=== PATIENT | female | born 1940 | race Caucasian/White ===

== ENCOUNTER 2019-06-28 02:52 | Inpatient (IN) | payer MEDICARE ==
[~2019-06-28] VITALS: Ht 165.1 cm; Wt 65.2 kg
[~2019-06-28 02:52] MED LIST: FLUTICASONE50 MCG; LEVOTHYROXIN75 MC1 PO; LEVOTHYROXIN88 MC1 PO; PAROXETINE10 MG PO; PRAVACHOL20 MG PO; SIMVASTATIN40 MG PO
--- NOTE | 2019-06-28 03:15 | NUR ---
BY WC TO ROOM
[2019-06-28 04:27] LABS: BUN 36 mg/dL (8-23); BUN/CREATININE RATIO 47 (12-20 (CALC)); CHLORIDE 97 mmol/l (95-108); CREATININE 0.8 mg/dL (0.5-1.0); GFR > 60 ML/MIN (>=60 (CALC)); GFR FOR AFR.AMER. > 60 ML/MIN (>=60 (CALC)); POTASSIUM 4.1 mmol/l (3.5-5.1); TOTAL PROTEIN 6.2 g/dL (6.3-8.2)
[2019-06-28 04:37] LABS: HEMATOCRIT 34.4 % (37.0-47.0); HEMOGLOBIN 12.4 g/dl (12.0-16.0); IMMATURE GRANULOCYTES 3.1 % (0.0-5.0); MEAN CELL VOLUME 83.7 fL CALC (80.0-100.0); MEAN CORPUSCULAR HGB 30.2 pG CALC (26.0-32.0); NEUT# 15.65 thou/uL (2.00-7.15); RED BLOOD COUNT 4.11 mill/uL (4.20-5.60); RED CELL DISTRI WIDTH 13.9 % (11.5-15.5)
[2019-06-28 04:48] LABS: ALBUMIN 2.9 g/dL (3.2-5.0); ALKALINE PHOSPHATASE 163 u/l (38-126); ANION GAP 16 (6-22 (CALC)); BILIRUBIN, TOTAL 1.9 mg/dL (0.0-1.4); CARBON DIOXIDE 21 mmol/l (22-30); SGOT/AST 65 u/l (9-36); SODIUM 130 mmol/l (137-146)
--- NOTE | 2019-06-28 06:47 | NUR ---
REPORT CALLED TO ANGEL LANGSTON IN ICU
--- NOTE | 2019-06-28 07:34 | NUR ---
PT TAKEN TO FLOOR PER CUT OFF [facility]YER AT 730 WITH CARDIAC MONITER. ALERT/ORIENTED. ACCOMPANIED WITH . VSS.
[2019-06-28 07:49] VITALS: BP 122/65
--- NOTE | 2019-06-28 08:00 | NUR ---
PPT ARRIVES FROM ER ACCOMPANIED BY , ALERT AND ORIENTED X 2. LUNGS WITH RIGHT SIDED COARSENESS, SATS SEEN UPPER 80s TO LOW 90s, PLACED ON 2 LPM NC, THEN UPPED TO 4 LPM HUM. PT FEBRILE AT 102.9 UPON ARRIVAL, PROVIDED TYLENOL FOR SAME. PT DOES HAVE DEMENTIA, EARLY STAGE, INTERACTS WELL WITH PEOPLE, BUT APPEARS CONFUSED AT TIMES. ADMISSION COMPLETED.
[2019-06-28 10:00] VITALS: BP 97/53
[2019-06-28 12:00] VITALS: BP 108/67
--- NOTE | 2019-06-28 12:00 | NUR ---
PT NOT HUNGRY, NIBBLING AT HER MEAL. FAMILY GONE FOR NOW, WILL RETURN. PT DENIES SHORTNESS OF BREATH.
[2019-06-28 13:56] LABS: URINE BILIRUBIN - DIPSTICK NEGATIVE (NEGATIVE); URINE BLOOD DIPSTICK NEGATIVE (NEGATIVE); URINE COLOR YELLOW; URINE GLUCOSE - DIPSTICK NEGATIVE (NEGATIVE); URINE KETONE NEGATIVE (NEGATIVE); URINE LEUK ESTERASE NEGATIVE (NEGATIVE); URINE NITRITE - DIPSTICK NEGATIVE (Negative); URINE PROTEIN - DIPSTICK NEGATIVE (NEG-TRACE); URINE SPECIFIC GRAVITY <=1.005
[2019-06-28 16:00] VITALS: BP 112/75
--- NOTE | 2019-06-28 17:00 | NUR ---
PT CALLS APPROPRIATELY WHEN SHE NEEDS TO USE BSC, STANDBY ASSIST IS ALL THAT IS NEEDED. NO COMPLAINTS OF SHORTNESS OF BREATH OR OTHERWISE.
[2019-06-28 18:00] VITALS: BP 96/59
--- NOTE | 2019-06-28 19:55 | NUR ---
RESTING IN BED. PATIENT ORIENTED X3. SPEECH CLEAR WITH APPROPRIATE RESPONSES TO QUESTIONS. PATIENT STATES SHE HAS DEMENTIA AND CONVERSATION CAN BE REPETITIVE. RESP NON-LABORED AT REST. O2 ON AT 2 L NC. BREATH SOUNDS COARSE THROUGHOUT LUNG URBINA. NON-PRODUCTIVE COUGH PRESENT. IV IN RW WITH NS INFUSING AT 125 ML/HR, SITE BENIGN. GENETIC PHYSICIAN SHOWS SR. EXPLAINED PLAN OF CARE. REINFORCE ANY TEACHING NEEDED.
[2019-06-28 22:00] VITALS: BP 101/56
--- NOTE | 2019-06-28 22:00 | NUR ---
PATIENT SAT UP IN CHAIR FOR PAST HOUR, BACK TO BED NOW. VSS. RESP SLT DYSPNEIC WITH EXERTION.
--- NOTE | 2019-06-29 | NUR ---
AWAKE, RESTLESS AT TIMES. DRY, NON-PRODUCTIVE COUGH PRESENT. SR ON MONITOR.
[2019-06-29 00:13] VITALS: BP 118/66
--- NOTE | 2019-06-29 02:05 | NUR ---
MINIMAL ASSIST UP TO BSC. NO COMPLAINTS VOICED. COOPERATVIE AND PLEASANT. FORGETFUL.
[2019-06-29 04:10] VITALS: BP 120/87
--- NOTE | 2019-06-29 04:10 | NUR ---
PATIENT HAS BEEN AWAKE FO RMOST OF THE NIGHT, SHE STATES SHE HAS BEEN RESTING.
[2019-06-29 05:35] LABS: HEMATOCRIT 32.2 % (37.0-47.0); HEMOGLOBIN 10.9 g/dl (12.0-16.0); IMMATURE GRANULOCYTES 4.2 % (0.0-5.0); MEAN CELL VOLUME 87.3 fL CALC (80.0-100.0); MEAN CORPUSCULAR HGB 29.5 pG CALC (26.0-32.0); MEAN CORPUSCULAR HGB CONC 33.9 g/L CALC (32.0-36.0); RED CELL DISTRI WIDTH 14.2 % (11.5-15.5)
[2019-06-29 05:49] LABS: PLATELET COUNT 308 thou/uL (130-400); RED BLOOD COUNT 3.69 mill/uL (4.20-5.60)
[2019-06-29 05:50] LABS: MANUAL DIFFERENTIAL YES
[2019-06-29 06:00] VITALS: BP 112/59
[2019-06-29 06:11] LABS: BAND 5 % (0-8)
[2019-06-29 06:16] LABS: ALBUMIN 2.5 g/dL (3.2-5.0); ALKALINE PHOSPHATASE 165 u/l (38-126); ANION GAP 11 (6-22 (CALC)); BILIRUBIN, TOTAL 1.4 mg/dL (0.0-1.4); BUN 16 mg/dL (8-23); BUN/CREATININE RATIO 25 (12-20 (CALC)); CARBON DIOXIDE 22 mmol/l (22-30); CHLORIDE 105 mmol/l (95-108); CREATININE 0.6 mg/dL (0.5-1.0); GFR > 60 ML/MIN (>=60 (CALC)); GFR FOR AFR.AMER. > 60 ML/MIN (>=60 (CALC)); POTASSIUM 3.4 mmol/l (3.5-5.1); SGOT/AST 37 u/l (9-36); SODIUM 134 mmol/l (137-146); TOTAL PROTEIN 5.3 g/dL (6.3-8.2)
--- NOTE | 2019-06-29 06:35 | NUR ---
DR LUCERO NOTIFIED OF INCREASED WBC'S AND BANDS. NO NEW ORDERS AT THIS TIME.
--- NOTE | 2019-06-29 08:00 | NUR ---
PT IS AWAKE, ALERT, ORIENTED X 1-2. SHE HAS DEMENTIA, IS ABLE TO SAY THAT SHE HAS DEMENTIA. PT WITH CRACKLES TO LUNG URBINA, 4 LPM HUM NC. PT PROVIDED INCENTIVE SPIROMETER, IS USING IT FREQUENTLY. PT TO BSC NEEDED WITH STANDBY ASSIST. PRODUCTIVE COUGH HEARD OCCASIONALLY.
--- NOTE | 2019-06-29 12:08 | NUR ---
PT USING HER INCENTIVE SPIROMETER OFTEN. PT WITH SATS IN THE MID 90s, DENIES SHORTNESS OF BREATH.
[2019-06-29 12:13] VITALS: BP 140/59
[2019-06-29 16:30] VITALS: BP 124/65
--- NOTE | 2019-06-29 17:38 | NUR ---
PT HAS ENJOYED VISITORS THROUGHOUT THE DAY. NO RESPIRATORY DISTRESS, NO COMPLAINTS OF CHEST PAIN. PT CONTINUES WITH INCENTIVE SPIROMETER OFTEN.
[2019-06-29 20:00] VITALS: BP 136/62
--- NOTE | 2019-06-29 20:10 | NUR ---
RESTING IN BED ON ROUNDS. ALERT AND ORIENTED. RESPONSES TO QUESTIONS ARE APPROPRIATE. PATIENT VERY FORGETFUL AND REPETITIVE IN HER CONVERSATIONS. RESP NON-LABORED AT REST, FRANKS. PATIENT REMOVED O2, SAT DOWN 88-90% REAPPLIED O2 AT 4 L NC AND SAT UP TO 94% ENCOURAGED TO LEAVE O2 IN PLACE. BREATH SOUNDS CLEAR IN UPPER LOBES WITH BIBASILAR CRACKLES. NO PERIPHERAL EDEMA, PERIPHERAL PULSES INTACT. SALINE LOCK IN PLACE IN LW, SITE HEALTHY. DISCUSSED PLAN OF CARE WILL REINFORCE TEACHING PRN. CALL HWANG IN REACH.
--- NOTE | 2019-06-29 22:15 | NUR ---
PATIENT RESTING QUIETLY IN BED. NO COMPLAINTS VOICED. O2 SAT 93% ON 4 L NC.
[2019-06-30] VITALS (7 sets, daily range): BP systolic 128–150; BP diastolic 64–78
--- NOTE | 2019-06-30 00:10 | NUR ---
PATIENT RESTLESS, STATES "SOMETHING HAS ME KEYED UP". EXPLAINED TO PATIENT THIS MAY BE A SIDE EFFECT TO THE SOLUMEDROL. PATIENT AMBULATED TO BR WITH ASSIST, GAIT AND STANCE STABLE. VOIDS QS. ASSISTED TO RECLINER.
--- NOTE | 2019-06-30 02:00 | NUR ---
PATIENT IS MORE CONFUSED TONIGHT. FREQ ATTEMPTS TO REORIENT. UP TO USE [facility] FREQ.
--- NOTE | 2019-06-30 04:15 | NUR ---
PATIENT HAS TAKEN A FEW BRIEF NAPS THIS EVENING. CONFUSED, PATIENT THINKS HER A PATIENT IN ICU. SUPPORT AND REASSURANCE PROVIDED FREQUENTLY.
--- NOTE | 2019-06-30 05:00 | NUR ---
ASSISTED PATIENT BACK TO BED. FREQ ATTEMPTS TO REORIENT.
[2019-06-30 05:20] LABS: HEMATOCRIT 33.8 % (37.0-47.0); HEMOGLOBIN 11.5 g/dl (12.0-16.0); MEAN CELL VOLUME 86.4 fL CALC (80.0-100.0); MEAN CORPUSCULAR HGB 29.4 pG CALC (26.0-32.0); RED BLOOD COUNT 3.91 mill/uL (4.20-5.60); RED CELL DISTRI WIDTH 14.6 % (11.5-15.5)
[2019-06-30 05:39] LABS: ANION GAP 11 (6-22 (CALC)); BUN 16 mg/dL (8-23); BUN/CREATININE RATIO 28 (12-20 (CALC)); CARBON DIOXIDE 23 mmol/l (22-30); CHLORIDE 105 mmol/l (95-108); CREATININE 0.6 mg/dL (0.5-1.0); GFR > 60 ML/MIN (>=60 (CALC)); GFR FOR AFR.AMER. > 60 ML/MIN (>=60 (CALC)); POTASSIUM 3.3 mmol/l (3.5-5.1); SODIUM 136 mmol/l (137-146)
--- NOTE | 2019-06-30 07:00 | NUR ---
PT SITTING UP IN CHAIR. PATIENT ANSWERS ORIENTATION QUESTIONS. PT CONFUSED AT TIMES. EDUCATED PATIENT ON FALL RISK AND TO CALL BEFORE GETTING UP. WILL CONTINUE TO MONITOR.
--- NOTE | 2019-06-30 09:05 | NUR ---
SPOKE WITH DAUGHTER CHRIS. UPDATED HER ON PT STATUS.
--- NOTE | 2019-06-30 12:20 | NUR ---
PT UP IN CHAIR. NO DISTRESS NOTED. PT VOIDED VIA BEDSIDE COMMODE. FAMILY AT BEDSIDE. DENIES PAIN. WILL CONTINUE TO MONITOR.
--- NOTE | 2019-06-30 15:49 | NUR ---
PT TO CT SCAN VIA WHEELCHAIR WITH TRANSPORT. PT ON OXYGEN. NO DISTRESS NOTED.
--- NOTE | 2019-06-30 16:15 | NUR ---
PT BACK TO ICU8 FROM CT SCAN. PT IN STABLE CONDITION. NO DISTRESS NOTED
--- NOTE | 2019-06-30 16:45 | NUR ---
DR HELM UPDATED ON PT STATUS. CT COMPLETE
--- NOTE | 2019-06-30 16:55 | NUR ---
PT RESTING IN BED. NO DISTRESS NOTED. DENIES PAIN. FAMILY AT BEDSIDE. WILL CONTINUE TO MONITOR
--- NOTE | 2019-06-30 18:59 | NUR ---
REPORT GIVEN TO NIGHT NURSE. PT RESTING IN BED WITH EYES CLOSED. NO DISTRESS NOTED. NO BM. PT VOIDED VIA BEDSIDE COMMODE. PLEASE SEE FLOW SHEET FOR FURTHER DETAILS.
--- NOTE | 2019-06-30 19:20 | NUR ---
awake. confused. oriented to name only. o2 cont per nc. desats quickly when o2 is removed by pt. quality assurance monitor body shows sinus rhythm pacs pvcs. #22 lt wrist saline lock. po fluids taken well. voids per bsc. fall precautions cont. bed alarm activated.
--- NOTE | 2019-06-30 20:40 | NUR ---
restoril 15mg po given for sleep.
--- NOTE | 2019-06-30 23:00 | NUR ---
awake. tv turned off. instructed pt it was time to sleepy
--- NOTE | 2019-06-30 23:30 | NUR ---
eyes closed. no distress.
--- NOTE | 2019-07-01 00:01 | NUR ---
awake overnight monitor shows sinus rhythm pacs pvcs hr 82.
--- NOTE | 2019-07-01 01:15 | NUR ---
up to bsc then back to bed. instructed pt it was time to sleep.
--- NOTE | 2019-07-01 01:30 | NUR ---
eyes closed. no distress.
--- NOTE | 2019-07-01 03:30 | NUR ---
up to bsc then back to bed. instructed pt it was time to sleep.
--- NOTE | 2019-07-01 03:45 | NUR ---
eyes closed. no distress.
--- NOTE | 2019-07-01 04:00 | NUR ---
locket maker shows sinus rhythm pacs pvcs hr 70.
--- NOTE | 2019-07-01 05:00 | NUR ---
lab here. blood drawn.
[2019-07-01 05:21] LABS: HEMATOCRIT 34.3 % (37.0-47.0); HEMOGLOBIN 11.7 g/dl (12.0-16.0); MEAN CELL VOLUME 88.2 fL CALC (80.0-100.0); MEAN CORPUSCULAR HGB 30.1 pG CALC (26.0-32.0); MEAN CORPUSCULAR HGB CONC 34.1 g/L CALC (32.0-36.0); NEUT# 21.93 thou/uL (2.00-7.15); RED BLOOD COUNT 3.89 mill/uL (4.20-5.60); RED CELL DISTRI WIDTH 14.8 % (11.5-15.5)
[2019-07-01 05:40] LABS: IMMATURE GRANULOCYTES 12.4 % (0.0-5.0)
[2019-07-01 05:48] LABS: ALBUMIN 2.8 g/dL (3.2-5.0); ALKALINE PHOSPHATASE 142 u/l (38-126); BUN 15 mg/dL (8-23); BUN/CREATININE RATIO 24 (12-20 (CALC)); CARBON DIOXIDE 22 mmol/l (22-30); CHLORIDE 107 mmol/l (95-108); CREATININE 0.6 mg/dL (0.5-1.0); GFR > 60 ML/MIN (>=60 (CALC)); GFR FOR AFR.AMER. > 60 ML/MIN (>=60 (CALC)); SODIUM 137 mmol/l (137-146)
[2019-07-01 05:56] LABS: ANION GAP 13 (6-22 (CALC)); BILIRUBIN, TOTAL 0.8 mg/dL (0.0-1.4); POTASSIUM 4.7 mmol/l (3.5-5.1); SGOT/AST 69 u/l (9-36)
--- NOTE | 2019-07-01 07:50 | NUR ---
PT RESTING IN BED WITH EYES CLOSED. NO DISTRESS NOTED. WILL CONTINUE TO MONITOR.
--- NOTE | 2019-07-01 10:05 | NUR ---
DR. HELM AT BEDSIDE TO ASSESS PT
[2019-07-01 12:00] VITALS: BP 134/83
--- NOTE | 2019-07-01 12:26 | NUR ---
PT UP IN CHAIR FOR LUNCH. NO DISTRESS NOTED. 1 BM. PT TO THE BEDSIDE COMMODE. BED BATH COMPLETE. DENIES ANY PAIN AT THIS TIME. WILL CONTINUE TO MONITOR.
--- NOTE | 2019-07-01 15:00 | NUR ---
PT AMBULATED AROUND UNIT WITH THIS RN. STAND BY ASSIST. NO RESP DISTRESS NOTED. NO SOB NOTED. WILL CONTNIUE TO MONITOR
[2019-07-01 16:00] VITALS: BP 140/67
--- NOTE | 2019-07-01 16:23 | NUR ---
PT RESTING IN CHAIR WITH EYES CLOSED. NO DISTRESS NOTED. DENIES PAIN. NO NEEDS AT THIS TIME. WILL CONTINUE TO MONITOR.
--- NOTE | 2019-07-01 19:01 | NUR ---
REPORT GIVEN TO NIGHT NURSE. PT RESTING IN CHAIR. NO DISTRESS NOTED. PT ON NC. URINATED VIA COMMODE. 1 BM. AMUBLATED WITHOUT RESP DISTRESS.
[2019-07-01 19:30] VITALS: BP 124/73
--- NOTE | 2019-07-01 19:30 | NUR ---
sitting in bedside chair. denies distress. mentally less confused tonite. o2 cont per nc. diagnostic cardiac sonographer shows sinus rhythm hr 100. #22 lt wrist saline lock. po fluids taken well. voids per bsc. fall precautions cont. @ bedside.
--- NOTE | 2019-07-01 21:40 | NUR ---
voided per bsc then assisted to bed. argelia well. restoril 15mg po given for sleep.
--- NOTE | 2019-07-02 00:01 | NUR ---
traffic monitor specialist shows sinus rhyyhm pace pacs hr 62.
--- NOTE | 2019-07-02 03:45 | NUR ---
inc large amount of urine. bed bath given then up to chair.
--- NOTE | 2019-07-02 04:58 | NUR ---
asleep in chair. assisted to bed. rt @ bedside for francia tx. lab here. blood drawn.
[2019-07-02 05:27] LABS: HEMATOCRIT 31.5 % (37.0-47.0); HEMOGLOBIN 10.5 g/dl (12.0-16.0); MEAN CELL VOLUME 89.2 fL CALC (80.0-100.0); MEAN CORPUSCULAR HGB 29.7 pG CALC (26.0-32.0); MEAN CORPUSCULAR HGB CONC 33.3 g/L CALC (32.0-36.0); RED BLOOD COUNT 3.53 mill/uL (4.20-5.60)
[2019-07-02 05:56] LABS: ANION GAP 12 (6-22 (CALC)); BUN 16 mg/dL (8-23); BUN/CREATININE RATIO 26 (12-20 (CALC)); CARBON DIOXIDE 23 mmol/l (22-30); CHLORIDE 104 mmol/l (95-108); CREATININE 0.6 mg/dL (0.5-1.0); GFR > 60 ML/MIN (>=60 (CALC)); GFR FOR AFR.AMER. > 60 ML/MIN (>=60 (CALC)); POTASSIUM 4.4 mmol/l (3.5-5.1); SODIUM 135 mmol/l (137-146)
--- NOTE | 2019-07-02 07:59 | NUR ---
PT A&Ox3. C/O PAIN WITH COUGH. STATES COUGH NOW PRODUCTIVE WITH YELLOW MUCOS. BREATHING EVEN/UNLABORED. STRONG PULSES x4.
[2019-07-02 08:00] VITALS: BP 120/70
--- NOTE | 2019-07-02 08:36 | NUR ---
DR HEML @BEDSIDE WITH PT/FAMILY.
--- NOTE | 2019-07-02 08:56 | NUR ---
BED ALARM ALARMING, UPON ENTERING ROOM, DAUGHTER STATES "THEY LET ME GET HER UP FOR THE PAST 3 DAYS". FAMILY ASKED TO NOTIFY STAFF OF URINE OUTPUT. DAUGHTER ALSO ASKED TO GET PT DRESSED IN HER [place], ASKED FAMILY TO LEAVE PT IN HER HOSPITAL GOWN.
[2019-07-02 12:00] VITALS: BP 118/66
--- NOTE | 2019-07-02 12:00 | NUR ---
PT SITTING UP IN CHAIR, EATING LUNCH. GUEST TRAY ORDERED FOR .
--- NOTE | 2019-07-02 15:13 | NUR ---
PT REMAINS UP IN CHAIR. IN CHAIR CONVERSING WITH PT. PT DENIES PAIN, SOB, N/V/D. CALLBELL W/IN REACH. WILL CONTINUE TO MONITOR.
[2019-07-02 16:00] VITALS: BP 136/75
--- NOTE | 2019-07-02 16:04 | NUR ---
PTS FAMILY CONCERNED ABOUT PT SAYING SHES NOT SLEEPING AT NIGHT. MD AWARE, AWAITING NEW ORDER. DAUGHTER @BEDSIDE WANTS TO WALK PT AROUND UNIT; PT WANTS TO USE A WALKER BUT DAUGHTER DOESNT WANT HER TO. DAUGHTER AWARE UNTIL PHYSICAL THERAPY CLEARS HER, SHE WILL NEED SUPPORT WHEN WALKING AROUND UNIT TO PREVENT FALLS/ FOR HER SAFETY.
[2019-07-02 17:00] VITALS: BP 141/82
--- NOTE | 2019-07-02 17:14 | NUR ---
PT/FAMILY WAITING ON NEW ROOM ASSIGNMENT ON MSU.
--- NOTE | 2019-07-02 18:20 | NUR ---
FAMILY GIVEN BLANKETS, DAUGHTER LAYING IN PTS BED, PT SITTING UP IN A CHAIR, IN THE RECLINER GIVEN TURKEY SANDWICH & WATER.
--- NOTE | 2019-07-02 20:00 | NUR ---
REPORT RECEIVED. ROUNDS MADE AND FAMILY AT PT BEDSIDE SUPPORTIVE. PT HAS MILD SIGNS OF TACHYPNEA AND DYSPNEA WHILE UP IN RECLINER TALKING. 02 ON 3L NC. BREATH SOUNDS CLEAR AND DIMINISHED. 02 SATS 96%. PLAN OF CARE REVIEWED. DENIES PAIN HAS NO NEEDS AT THIS TIME.
[2019-07-02 22:00] VITALS: BP 135/77
--- NOTE | 2019-07-03 | NUR ---
ASSIST TO BED FROM RECLINER AFTER VOIDING ON BEDSIDE COMMODE. AGRESSIVE PULMONARY TOILETTING WITH INSTRUCTION AND REVIEW OF INCENTIVE SPIROMETER. USE AT 2000 LEVEL OF 750 MOSTLY AND STRUGGLED TO 1000 MUSA WITH POOR NON PRODUCTIVE COUGH. REVIEW AND REINSTRUCT AT 2200 GAVE MUCH IMPROVED RESULTS OF 1000 CONSISTENTLY TO 10 WITH A FEW INSPIR TO 1500. STRONG LOOSE PRODUCTIVE COUGH WITH YELLOW THICK SECRETIONS. GIVEN ROBITUSSIN AND TYLENOL FOR COUGH AND ABDOMINAL AND CHEST MUSCLE SORENESS WITH GOOD RESULTS. GIVEN RESTORIL AT 2330 AFTER INCENT SPIROM USE BEFORE ASSIST TO BED. NOW RESTING WITH EYES CLOSED AND FACE RELAXED. 02 WEANED FROM 3 DOWN TO 2L NC. RR 16, 02 SAT 98%.
--- NOTE | 2019-07-03 04:00 | NUR ---
AWAKENED COUGHING AROUND 0145, MED WITH PRN DOSE OF ROBITUSSIN AVAILABLE. RETURNED TO REST WITH EYES CLOSED, FACE RELAXED. HR 60S SINUS NO ECTOPY. RR 15-18 NON LABORED. 02 SAT 98-100% ON 2L NC. WILL CONTINUE TO MONITOR.
[2019-07-03 05:20] VITALS: BP 120/65
[2019-07-03 05:48] LABS: HEMATOCRIT 29.8 % (37.0-47.0); HEMOGLOBIN 9.9 g/dl (12.0-16.0); MEAN CELL VOLUME 89.2 fL CALC (80.0-100.0); MEAN CORPUSCULAR HGB 29.6 pG CALC (26.0-32.0); MEAN CORPUSCULAR HGB CONC 33.2 g/L CALC (32.0-36.0); RED BLOOD COUNT 3.34 mill/uL (4.20-5.60); RED CELL DISTRI WIDTH 14.9 % (11.5-15.5)
[2019-07-03 06:15] LABS: ANION GAP 8 (6-22 (CALC)); BUN 14 mg/dL (8-23); BUN/CREATININE RATIO 23 (12-20 (CALC)); CARBON DIOXIDE 25 mmol/l (22-30); CHLORIDE 105 mmol/l (95-108); CREATININE 0.6 mg/dL (0.5-1.0); GFR > 60 ML/MIN (>=60 (CALC)); GFR FOR AFR.AMER. > 60 ML/MIN (>=60 (CALC)); POTASSIUM 4.1 mmol/l (3.5-5.1); SODIUM 134 mmol/l (137-146)
--- NOTE | 2019-07-03 07:00 | NUR ---
RECVD REPORT FROM ANGEL YOUSIF @START OF SHIFT.
[2019-07-03 08:00] VITALS: BP 112/66
--- NOTE | 2019-07-03 09:40 | NUR ---
ARANDA, PHYSICAL THERAPY @BEDSIDE, WALKING PT AROUND UNIT USING WALKER. PT USING UNSTEADY GAIT WITH POOR REACTION TIME.
--- NOTE | 2019-07-03 10:50 | NUR ---
PT WAS SEEN SITTING IN THE RECLINER WITH FAMILY IN THE ROOM. HER DAUGHTER MENTIONS THAT PT WAS WALKING FINE 2 DAYS AGO HOWEVER IS NOW SHOWING SOME DECLINE IN FUNCTION. PT WAS COOPERATIVE AND WAS ABLE TO FOLLOW INSTRUCTIONS DURING THE TX HOWEVER NOTED INCREASE IN REACTION TIME AND INABILITY TO EXECUTE PURPOSEFUL GROSS MOTOR FUNCTION INDEPENDENTLY. THERAPIST HAD TO CONSTANTLY PROVIDE TACTILE AND VERBAL CUES THROUGHOUT THE TX. SIT<>STAND WITH MIN A. SHE AMBULATED IN THE HALLWAY AT A VERY SLOW PACE WITH RW, CGA AND CONSTANT TC AND VCS, THERAPIST NAVIGATING THE WALKER PT WAS UNABLE TO DO SO. VITALS WERE STABLE POST TX. HER AMPAC SCORE TODAY IS 14 POINTS. PT WILL BENEFIT FROM IRF FOR GEN CONDITIONING, STRNEGTHENING AND BALANCE TRAINING.
--- NOTE | 2019-07-03 11:51 | NUR ---
REPORT GIVEN TO ANGEL LANGSTON FOR CONTINUATION OF CARE. PT WILL TRANSFER TO [facility] 283
--- NOTE | 2019-07-03 11:59 | NUR ---
FAMILY AWARE OF TRANSFER.
[2019-07-03 12:00] VITALS: BP 117/65
[2019-07-03 14:30] VITALS: BP 135/73
--- NOTE | 2019-07-03 14:31 | NUR ---
pt transfered to [facility] with all belongings. pt appreciative of staffs help.
--- NOTE | 2019-07-03 15:00 | NUR ---
PT ARRIVES FROM ICU VIA WHEELCHAIR, ALERT AND ORIENTED X 2-3. LUNGS CLEAR, RA. PT DENIES SHORTNESS OF BREATH, STATES THAT SHE FEELS BETTER TODAY. FAMILY AT BEDSIDE.
--- NOTE | 2019-07-03 16:30 | NUR ---
PT WITH VISITORS AT BEDSIDE, INTERACTIVE. NO SHORTNESS OF BREATH SHE RESTS IN THE BED. PT ASSISTED TO BR WITH STANDBY ASSIST.
[2019-07-03 19:32] VITALS: BP 122/61
--- NOTE | 2019-07-03 20:15 | NUR ---
PT SITTING UP IN CHAIR, USING IS. ASSESMENT COMPLETE. PLAN OF CARE REVIEWED. PT VERBALIZES UNDERSTANDING, DENIES QUESTIONS. DENIES NEEDS AT THIS TIME. CALL HWANG WITHIN REACH, AGREES TO CALL PRN.
[2019-07-04 00:14] VITALS: BP 108/63
--- NOTE | 2019-07-04 00:15 | NUR ---
PT APPEARS TO BE SLEEPING COMFORTABLY, NO APPARENT DISTRESS. PT WAKES EASILY. DENIES NEEDS AT THIS TIME. CALL HWANG IN REACH, AGREES TO CALL PRN.
--- NOTE | 2019-07-04 04:00 | NUR ---
PT APPEARS TO BE SLEEPING COMFORTABLY, NO APPARENT DISTRESS. RESP REG AND UNLABORED. CALL HWANG REMAINS WITHIN REACH.
[2019-07-04 05:27] LABS: HEMATOCRIT 31.1 % (37.0-47.0); HEMOGLOBIN 10.3 g/dl (12.0-16.0); MEAN CELL VOLUME 90.7 fL CALC (80.0-100.0); MEAN CORPUSCULAR HGB CONC 33.1 g/L CALC (32.0-36.0); RED BLOOD COUNT 3.43 mill/uL (4.20-5.60)
[2019-07-04 05:41] LABS: ANION GAP 10 (6-22 (CALC)); BUN 15 mg/dL (8-23); BUN/CREATININE RATIO 23 (12-20 (CALC)); CARBON DIOXIDE 28 mmol/l (22-30); CHLORIDE 102 mmol/l (95-108); CREATININE 0.7 mg/dL (0.5-1.0); GFR > 60 ML/MIN (>=60 (CALC)); GFR FOR AFR.AMER. > 60 ML/MIN (>=60 (CALC)); POTASSIUM 4.2 mmol/l (3.5-5.1); SODIUM 135 mmol/l (137-146)
[2019-07-04 08:00] VITALS: BP 103/65
--- NOTE | 2019-07-04 08:00 | NUR ---
PT AWAKE, ALERT, ORIENTED X 3, HAD ADJUSTED WELL TO MED/SURG ROOM. PT TAKEN TO XRAY FOR 2V THIS MORNING. NO DISTRESS, NO SHORTNESS OF BREATH.
[2019-07-04 10:45] VITALS: BP 113/73
--- NOTE | 2019-07-04 11:11 | NUR ---
Physical Therapy Visit Note July 04, 2019, Sunday Patient identitified by name and date of . Paient expressed readiness for physical therapy. PT Management: 1. AROME of both the UE x 10 repetitions, sitting. 2. AROME of both the LE x 10 repetitions, sitting. 3. Sit to stand x 3 to 5 repetitons with + 1 minimal assit. 4. Sitting balance/tolerance x 5 minutes. 5. Standing balance/tolerance x 5 minutes. 6. Bed to chair and in between chair transfers. 7. Gait training with rolling walker x 20 feet x 2 rounds with rest periods in-between rounds. Minimal assist and verbal cues provided for safety. Patient was able to perform all exercises but fatigued quickly. SO2 remained above 90%. Patient was left in the chair with daugther in the room after physical therapy session.
--- NOTE | 2019-07-04 12:00 | NUR ---
PT AND FAMILY UPDATED ON RESULTS FROM CHEST XRAY SHOWING MILD IMPROVEMENT. DR HELM HAS SEEN PT, WILL KEEP OVER THE WEEKEND TO CONTINUE IV ABX. PT IN AGREEMENT.
[2019-07-04 15:30] VITALS: BP 97/59
--- NOTE | 2019-07-04 16:39 | NUR ---
PT OOB IN CHAIR THIS AFTERNOON, CHATS WITH . NO DISTRESS NOTED.
[2019-07-04 18:32] VITALS: BP 117/74
--- NOTE | 2019-07-04 20:40 | NUR ---
PT SITTING UP IN CHAIR WATCHING TV. PHYSICAL ASSESMENT COMPLETE AND DOCUMENTED. VS ASSESSED, VSS. PLAN OF CARE REVIEWED. VERBALIZES UNDERSTANDING, DENIES QUESTIONS AT THIS TIME. DENIES FURTHER NEEDS AT THIS TIME. CALL HWANG WITHIN REACH. AGREES TO CALL PRN.
[2019-07-04 23:31] VITALS: BP 115/79
--- NOTE | 2019-07-05 | NUR ---
PT APPEARS TO BE SLEEPING COMFORTABLY, NO APPARENT DISTRESS. RESP REG & UNLABORED. CALL HWANG REMAINS WITHIN REACH.
[2019-07-05 03:44] VITALS: BP 115/68
--- NOTE | 2019-07-05 04:15 | NUR ---
PT MEDICATED FOR SHOULDER PAIN, SEE MAR FOR ADMIN AND F/U. REPOSITIONED FOR COMFORT.AM MED GIVEN. EMS SITE D/C'D AND RFA 22G INSERTED, SEE UNDER IV ASSESMENT. PT DENIES FURTHER NEEDS AT THIS TIME. CALL HWANG WITHIN REACH, AGREES TO CALL PRN.
--- NOTE | 2019-07-05 04:20 | NUR ---
PT OOB, SITTING UP IN CHAIR, WATCHING TV. COUGH NOTED THIS AM, PRN ANTITUSSIVE ADMINISTERED, SEE MAR. PT DENIES FURTHER NEEDS @ THIS TIME. CALL HWANG WITHIN REACH, AGREES TO CALL PRN.
--- NOTE | 2019-07-05 07:00 | NUR ---
PT SITTING IN RECLINER, NO SIGNS OF DISTRESS NOTED, RESP EVEN AND UNLABORED. PT ALERT AND ORIENTED X3. DISCUSSED POC, PT DEMONSTRATED USE OF IS TOTAL VOLUME 1000ML NEW GOAL SET AT 1500, PT VERBALIZED UNDERSTANDING. ASSESSMENT COMPLETED, CALL LIGHT IN REACH,CONTINUE TO MONITOR.
[2019-07-05 07:07] VITALS: BP 103/61
[2019-07-05 10:40] VITALS: BP 113/69
--- NOTE | 2019-07-05 11:41 | NUR ---
IV LEVAQUIN INITIATED. FAMILY AND MD AT BEDSIDE DISCUSSING POC. DAUGHTER STATES ONCE MD IS DONE SHE WOULD LIKE TO AMBULATE HALLWAY WITH PT.
--- NOTE | 2019-07-05 13:20 | NUR ---
RT WITH PT AMBULATING HALLWAY FOR 6-MIN WALK TEST
--- NOTE | 2019-07-05 14:11 | NUR ---
PT SITTING IN CHAIR, FAMILY AT BEDSIDE. CALL LIGHT IN REACH,CONTINUE TO MONITOR.
[2019-07-05 16:02] VITALS: BP 98/61
--- NOTE | 2019-07-05 16:12 | NUR ---
OFFERED PT PRUNE JUICE WITH MOM, PT DECLINED MOM. AGREED TO DRINK WARM PRUNE JUICE AND START STOOL SOFTENER, ORDER OBTAINED. PT SITTING IN RECLINER, CALL LIGHT IN REACH,CONTINUE TO MONITOR.
[2019-07-05 18:12] VITALS: BP 118/68
--- NOTE | 2019-07-05 20:15 | NUR ---
PT SITTING UP IN CHAIR. PHYSICAL ASSESMENT COMPLETE. VS ASSESSED, VSS. RESTORIL GIVEN FOR SLEEP PER PT'S REQUEST, SEE MAR. PLAN OF CARE REVIEWED. PT VERBALIZES UNDERSTANDING AND DENIES QUESTIONS. RYDER GRAY ASSISSTED PT TO BATHROOM AND BACK TO BED. POSITIONED FOR COMFORT, PT'S ITEMS PLACED WITHIN REACH. BED IN LOW POSITION W/ BEDRAILS UP X2. PT DENIES FURTHER NEEDS. CALL HWANG WITHIN REACH, AGREES TO CALL PRN.
[2019-07-06 00:02] VITALS: BP 107/68
--- NOTE | 2019-07-06 00:15 | NUR ---
PT APPEARS TO BE SLEEPING COMFORTABLY. NO APPARENT DISTRESS. RESP REG/UNLABORED. CALL HWANG REMAINS WITHIN REACH.
[2019-07-06 03:55] VITALS: BP 106/23; BP 106/73
--- NOTE | 2019-07-06 04:00 | NUR ---
PT APPEARS TO BE SLEEPING COMFORTABLY. NO APPARENT DISTRESS. RESP REG/UNLABORED. CALL HWANG REMAINS WITHIN REACH.
[2019-07-06 04:49] LABS: HEMATOCRIT 30.1 % (37.0-47.0); MEAN CELL VOLUME 91.5 fL CALC (80.0-100.0); MEAN CORPUSCULAR HGB 30.4 pG CALC (26.0-32.0); MEAN CORPUSCULAR HGB CONC 33.2 g/L CALC (32.0-36.0); RED BLOOD COUNT 3.29 mill/uL (4.20-5.60); RED CELL DISTRI WIDTH 15.7 % (11.5-15.5)
[2019-07-06 05:11] LABS: ALBUMIN 2.4 g/dL (3.2-5.0); ALKALINE PHOSPHATASE 111 u/l (38-126); ANION GAP 7 (6-22 (CALC)); BILIRUBIN, TOTAL 0.6 mg/dL (0.0-1.4); BUN 16 mg/dL (8-23); BUN/CREATININE RATIO 20 (12-20 (CALC)); CARBON DIOXIDE 28 mmol/l (22-30); CHLORIDE 103 mmol/l (95-108); CREATININE 0.8 mg/dL (0.5-1.0); GFR > 60 ML/MIN (>=60 (CALC)); GFR FOR AFR.AMER. > 60 ML/MIN (>=60 (CALC)); POTASSIUM 3.9 mmol/l (3.5-5.1); SGOT/AST 57 u/l (9-36); SODIUM 134 mmol/l (137-146); TOTAL PROTEIN 5.1 g/dL (6.3-8.2)
[2019-07-06 07:53] VITALS: BP 122/87
--- NOTE | 2019-07-06 07:53 | NUR ---
PT SITTING IN BED. A&O X3. PT DENIES ANY PAIN OR DISCOFORT AT THIS TIME. VOICES CONCERN ABOUT NOT HAVING A BM, EXPLAINED THAT STOOL SOFTNER WOULD BE PROVIDED AND MICROBIOLOGY INSTRUCTOR NOTIFIED. ASSISTED PT TO BATHROOM, SLOW STEADY GAIT OBSERVED. ASSESSMENT COMPLETED. DISCUSSED POC. CALL LIGHT IN REACH. CONTINUE TO MONITOR.
--- NOTE | 2019-07-06 09:15 | NUR ---
PT SLEEPING IN BED, DAUGHTER AT BEDSIDE. NO DISTRESS NOTED. CONTINUE TO MONITOR.
[2019-07-06 11:52] VITALS: BP 107/67
--- NOTE | 2019-07-06 12:46 | NUR ---
ASSITED PT TO A SIDE LYING POSITION. EXPLAINED TO THE PT WHAT TO EXPECT WHEN SUPPOSITORY WAS TO BE INSERTED. PT VERBALIZED UNDERSTANDING. SUPPOSITORY INSERTED. PT TOLERATED WELL. EXPLAINED TO PT TO TRY AND MAINTAIN SUPPOSITORY IN PLACE. CONTINUE TO MONITOR.
[2019-07-06 15:14] VITALS: BP 99/55
--- NOTE | 2019-07-06 15:49 | NUR ---
ASSISTED PT TO BATHROOM. PT WAS ABLE TO HAVE A BM, PT EXPRESSED RELIEF. ASSISTED PT BACK TO BED, SHORT EPISODE OF EXCERTIONAL SOB NOTED BUT SUBSIDED WHEN SHE SAT DOWN IN BED. CONTINUE TO MONITOR.
[2019-07-06 18:48] VITALS: BP 100/59
--- NOTE | 2019-07-06 20:20 | NUR ---
ADDENDUM, LAST VS DONE @ 5662 ASSESSED. VSS. 97.4F, 90bpm, RR22, 100/59mmHg, O2SAT 93% ON RA. SR IN THE 80'S ON TELE.
--- NOTE | 2019-07-06 20:20 | NUR ---
PT SITTING UP IN CHAIR, USING IS. PLAN OF CARE REVIEWED, PT VERBALIZES UNDERSTANDING AND DENIES QUESTIONS @ THIS TIME. ASSESMENT COMPLETE. RESP ARE REGULAR AND UNLABORED. LUNGS ARE CLEAR. COUGH HAS CLEARED. L WRIST 22G SL IS INTACT, DUE FOR CHANGE. PT AWARE, PT DECLINES REMOVAL AND RESTART OF IV. IV LEFT IN PLACE, SITE BENING. ASSESMENT OTHERWISE GROSSLY NEGATIVE. PT MEDICATED W/ PRN RESTORIL PER HER REQUEST, SEE MAR. REQUEST TO GO TO BATHROOM AND TO BED. ISAAC SOLER ASSIGNED TO ASSIST PT TO BR/BACK TO BED. DENIES FURTHER NEEDS @ THIS TIME. CALL HWANG WITHIN REACH. AGREES TO CALL PRN.
--- NOTE | 2019-07-06 20:45 | NUR ---
PT BACK IN BED, RESTING COMFORTABLY. DENIES NEEDS AT THIS TIME. CALL HWANG WITHIN REACH. AGREES TO CALL PRN. BED LOCKED AND IN LOW POSITION W/ BEDRAILS UPX2. ESSENTIAL ITEMS WITHIN REACH.
--- NOTE | 2019-07-06 23:21 | NUR ---
PT APPEARS TO BE SLEEPING COMFORTABLY, NO APPARENT DISTRESS. RESP REG&UNLABORED. CALL HWANG REMAINS WITHIN REACH. SAFETY AND FALL PRECAUTIONS REMAIN IN PLACE/UNCHANGED.
[2019-07-07] VITALS: BP 110/70
--- NOTE | 2019-07-07 01:46 | NUR ---
PT SLEEPING, APPEARS COMFORTABLE AND IN NO DISTRESS. RESP REG&UNLABORED. WAKES EASILY. NO CHANGES IN PHYSICAL ASSESMENT. VS ASSESED, VS STABLE- 97.4F,69bpm RR18,110/70mmHg,[id number]% ON RA, SR90'S ON TELE. DENIES PAIN. DENIES NEEDS AT THIS TIME. SAFETY AND FALL PRECAUTION REMAIN IN PLACE. CALL HWANG WITHIN REACH, AGREES TO CALL PRN.
[2019-07-07 04:36] VITALS: BP 120/73
--- NOTE | 2019-07-07 04:40 | NUR ---
PT SLEEPING, APPEARS COMFORTABLE AND IN NO DISTRESS. RESP REG&UNLABORED. WAKES EASILY. NO CHANGES IN PHYSICAL ASSESMENT. VS ASSESED, VS STABLE- 97.2 F, 66bpm, 18RR, 120/73mmHg, [id number]% ON RA,SR 60'S ON TELE. DENIES PAIN. DENIES NEEDS AT THIS TIME. SAFETY AND FALL PRECAUTION REMAIN IN PLACE. CALL HWANG WITHIN REACH, AGREES TO CALL PRN.
[2019-07-07 08:00] VITALS: BP 94/61
--- NOTE | 2019-07-07 08:00 | NUR ---
PT SEEN AWAKE, ALERT, AMBULATORY IN ROOM WITH STANDBY ASSIST. LUNGS CLEAR, RA. PT STATES BM TODAY. NO DISTRESS, NO COMPLAINTS, HOPES FOR DISCHARGE HOME TODAY.
[2019-07-07 11:12] VITALS: BP 102/56
[2019-07-07] MEDS ORDERED: PREDNISONE10 MG PO (11:53)
[2019-07-07] MEDS ORDERED: IPRATROPIU0.5 MG/3 M NEB (11:53)
[2019-07-07] MEDS ORDERED: LEVAQUIN750 MG PO (11:53)
--- NOTE | 2019-07-07 12:01 | NUR ---
PT WAS SEEN FOR GT. HER [facility] SCORE TODAY IS SIGNIFICANTLY BETTER: 18 POINTS PT AMBULATED IN THE HALLWAY W/ RW X 100 FT., THEN WEANED OFF OF RW X 100 FT X 2 W/ SBA TO ENSURE SAFETY. PROVIDED VCS ON PROPER GAIT W/ LONGER STRIDE AND ARM SWINGS. PT WAS ABLE TO CORRECTLY EXECUTE. SAFELY RETURNED TO HER ROOM W/O ADVERSE REACTIONS AT THE END OF ACTIVITY. PT MAY BENEFIT FROM HOME HEALTH PHYS THERAPY UPON DC.
--- NOTE | 2019-07-07 12:55 | NUR ---
PT HAS BEEN DISCHARGED TO HOME. DR HELM HAS SEEN PT, WRITTEN RXs, PT READIED FOR DISCHARGE. PT THEN VERBALIZED UNDERSTANDING OF DC INSTRUCTIONS, TAKEN BY WHEELCHAIR TO VEHICLE. PT LEAVES IN STABLE CONDITION.
== END 2019-07-07 12:54 | disposition home health service (06) | DRG 193 ==
LOC: ED 02:52 → ED-I 05:11 → ED 05:30 → ICU 05:31 → MS2 07-03 14:35
PROVIDERS: Emergency Medicine; Internal Medicine; Nurse Practitioner Family; ADMIT Internal Medicine; ATTEND Internal Medicine
DX: J18.9 Pneumonia, unspecified organism (principal); J96.01 Acute respiratory failure with hypoxia; F03.90 Unspecified dementia, unspecified severity, without behavioral disturbance, psychotic disturbance, mood disturbance, and anxiety; E03.9 Hypothyroidism, unspecified; E78.5 Hyperlipidemia, unspecified; R74.0 Nonspecific elevation of levels of transaminase and lactic acid dehydrogenase [LDH]
CPT/HCPCS: J1650; Q9967

== ENCOUNTER 2021-06-25 13:38 | Emergency (ER) | payer MEDICARE ==
[~2021-06-25] VITALS: Ht 165.1 cm; Wt 68.0 kg
[~2021-06-25 13:38] MED LIST changes: +IPRATROPIU0.5 MG/3 M NEB; +LEVAQUIN750 MG PO; +PREDNISONE10 MG PO
[2021-06-25 15:34] LABS: HEMATOCRIT 37.4 % (37.0-47.0); HEMOGLOBIN 12.4 g/dl (12.0-16.0); IMMATURE GRANULOCYTES 0.1 % (0.0-5.0); MEAN CELL VOLUME 91.2 fL CALC (80.0-100.0); MEAN CORPUSCULAR HGB 30.2 pG CALC (26.0-32.0); MEAN CORPUSCULAR HGB CONC 33.2 g/dL CAL (32.0-36.0); NEUT# 5.53 thou/uL (2.00-7.15); RED BLOOD COUNT 4.1 mill/uL (4.20-5.60)
[2021-06-25 15:52] LABS: URINE BILIRUBIN - DIPSTICK NEGATIVE (NEGATIVE); URINE BLOOD DIPSTICK NEGATIVE (NEGATIVE); URINE COLOR YELLOW; URINE GLUCOSE - DIPSTICK NEGATIVE (NEGATIVE); URINE KETONE NEGATIVE (NEGATIVE); URINE PROTEIN - DIPSTICK NEGATIVE (NEG-TRACE); URINE UROBILINOGEN - DIPSTICK 0.2 E.U./dL (0.2)
[2021-06-25 15:53] LABS: URINE LEUK ESTERASE SMALL (NEGATIVE); URINE NITRITE - DIPSTICK NEGATIVE (Negative)
[2021-06-25 16:02] LABS: ALBUMIN 3.5 g/dL (3.2-5.0); ALKALINE PHOSPHATASE 70 u/l (38-126); ANION GAP 13 (6-22 (CALC)); BILIRUBIN, TOTAL 0.6 mg/dL (0.0-1.4); BUN 10 mg/dL (8-23); BUN/CREATININE RATIO 13 (12-20 (CALC)); CARBON DIOXIDE 24 mmol/l (22-30); CHLORIDE 108 mmol/l (95-108); CREATININE 0.7 mg/dL (0.5-1.0); GFR > 60 ML/MIN (>=60 (CALC)); GFR FOR AFR.AMER. > 60 ML/MIN (>=60 (CALC)); POTASSIUM 3.7 mmol/l (3.5-5.1); SGOT/AST 29 u/l (9-36); SODIUM 141 mmol/l (137-146); TOTAL PROTEIN 6.3 g/dL (6.3-8.2)
[2021-06-25 16:03] LABS: URINE WBC 0-2 WBC/hpf (0-5)
[2021-06-25 16:04] LABS: URINE TRANSITIONAL EPI. CELLS RARE hpf
[2021-06-25 16:31] LABS: TSH, 3RD GENERATION 0.08 uIU/mL (0.47 - 4.68)
[2021-06-25] MEDS ORDERED: NITROFURANTN100 M2 PO ×2 (17:49→17:58)
[2021-06-25 17:50] VITALS: BP 134/106
== END 2021-06-25 18:25 | disposition home or self-care (01) ==
LOC: ED 13:38
PROVIDERS: Family Medicine
DX: N39.0 Urinary tract infection, site not specified (principal); E03.9 Hypothyroidism, unspecified; F03.90 Unspecified dementia, unspecified severity, without behavioral disturbance, psychotic disturbance, mood disturbance, and anxiety